=== PATIENT | female | born 1990 | race Caucasian/White ===

== ENCOUNTER 2016-12-28 17:38 | Emergency (ER) | payer SELFPAY ==
--- NOTE | 2016-12-31 13:48 | ER ---
ADMIT: 12/28/2016 RM/LOC: ER [facility] MR#: [id number] [id number] [id number] [address] [place] [address] Emergency Room Report SEX: F AGE: 26 : 1990 DATE: 12/28/2016 HISTORY OF PRESENT ILLNESS: The patient is a 26-year-old, presents to the emergency room with right upper quadrant abdominal pain, radiates to the back with nausea and vomiting. She states that she ate a potato salad and she has been taking Advil if she feels bloated and has some abdominal discomfort, all in the right upper quadrant, so specifically she has had ulcers in the past. PAST MEDICAL HISTORY: Pertussis. REVIEW OF SYSTEMS: Negative otherwise. PAST SURGICAL HISTORY: She had some surgery in her lungs, she has been taking a lot of Aleve to help with the discomfort and took 2 famotidine today, but is not consistent with the medication. PHYSICAL EXAMINATION: VITAL SIGNS: Within normal limits. Moderately anxious. ABDOMEN: On palpation, there is no McBurney's point tenderness. BACK: Normal inspection. SKIN: Good color. EXTREMITIES: Nontender. NEUROLOGIC: Oriented x4. MOOD AND AFFECT: Appropriate. IV fluids given with Zofran. Carafate and morphine. Zofran for home use as well as [place]. CLINICAL IMPRESSION: 1. Gastritis. 2. Right upper quadrant abdominal pain. PLAN: Instructions given for followup. CESAR Ortega / Sravan Nelson MD / modl JOB #: [id number] CC: Sravan Nelson MD, Attending Physician
== END 2016-12-28 21:30 | disposition home or self-care (01) ==
LOC: ER 17:38
DX: K29.70 Gastritis, unspecified, without bleeding (principal); R10.11 Right upper quadrant pain; Z79.899 Other long term (current) drug therapy